=== PATIENT | male | born 1975 | race Caucasian/White ===

== ENCOUNTER 2019-09-30 06:02 | Inpatient (IN) | payer BC, OTHER ==
[~2019-09-30] VITALS: Ht 177.8 cm; Wt 120.2 kg
[~2019-09-30 06:02] MED LIST: IBUP-1222 PO; OXYC1TAB7 PO; POLY454P4 PO
[2019-09-30] MEDS ORDERED: NITROGLYCERIN SINGLE TAB 0.4 MG SL ONE (06:24)
[2019-09-30] MEDS ORDERED: ASPIRIN 81 MG TABLET CHEW ONE (06:24)
[2019-09-30] MEDS: NITROGLYCERIN SINGLE TAB 0.4 MG SL PRN ×3 (06:26→06:43)
[2019-09-30] MEDS ORDERED: SODIUM CHLORIDE FLUSH 10ML SYR IVF ONE (06:30)
[2019-09-30] MEDS ORDERED: ASPIRIN 81 MG TABLET CHEW PO ONE (06:30)
[2019-09-30 06:33] LABS: BASOPHILS # (AUTO) 0.06 x10^3/uL (0-0.1); BASOPHILS % (AUTO) 1 % (0-1); EOSINOPHILS # (AUTO) 0.54 x10^3/uL (0-0.4); EOSINOPHILS % (AUTO) 6 % (1-7); LYMPHOCYTES # (AUTO) 2.51 x10^3/uL (1-3.4); LYMPHOCYTES % (AUTO) 28 % (22-44); MD NO; MEAN CORPUSCULAR HGB CONC 33.2 g/dL (33.2-36.2); MEAN CORPUSCULAR VOLUME 93.3 fL (81-97); MEAN PLATELET VOLUME 7.6 fL (7.4-10.4); MONOCYTES # (AUTO) 0.72 x10^3/uL (0.2-0.8); MONOCYTES % (AUTO) 8 % (2-9); NEUTROPHILS # (AUTO) 5.02 x10^3/uL (1.8-6.8); NEUTROPHILS % (AUTO) 57 % (42-75); PLATELET COUNT 321 x10^3/uL (130-400); RED BLOOD COUNT 5.22 x10^6/uL (4.38-5.82); RED CELL DISTRIBUTION WIDTH 14.1 % (9.4-14.8)
--- NOTE | 2019-09-30 06:36 | NUR ---
THIS PT CAME TO THE ER AFTER WAKING UP AT 0500, HIS NORMAL TIME, WITH LEFT SIDED CHEST PRESSURE. PT STATES HIS LEFT ARM IS ALSO TINGLING. HX OF HTN. PT STATES HE JUST WENT BACK TO WORK THIS WEEK, HE HAS BEEN FEELING ANXIOUS ABOUT THAT. PT STATES SOME RELIEF FROM PRESSURE WITH NITRO. EKG DONE IN TRIAGE AND REPEAT EKG DONE IN ROOM. ERP TO BEDSIDE. PT CONNECTED TO CARDIAC, BP AND O2 MONITORS. WILL CONTINUE TO MONITOR.
[2019-09-30 06:51] LABS: ALBUMIN 4.1 g/dL (3.4-5.0); ANION GAP 4 mmol/L (5-15); CALCIUM 8.6 mg/dL (8.5-10.1); CHLORIDE 107 mmol/L (98-107); CREATININE 1.08 mg/dL (0.7-1.3)
[2019-09-30 06:54] LABS: TROPONIN I < 0.015 ng/mL (0.000-0.045)
--- NOTE | 2019-09-30 06:58 | NUR ---
REPORT RECEIVED FROM SIDNEY BAXTER.
--- NOTE | 2019-09-30 07:18 | NUR ---
edmd at bedside to explain all results at this time.
[2019-09-30] MEDS ORDERED: LOSA100T14 PO (07:58)
[2019-09-30] MEDS ORDERED: CLON0.1T22 PO (07:59)
--- NOTE | 2019-09-30 08:00 | NUR ---
URINAL GIVEN PER REQUEST.
--- NOTE | 2019-09-30 08:22 | NUR ---
REPORT GIVEN TO VERONICA BAXTER. ALL QUESTIONS ANSWERED.
[2019-09-30] MEDS ORDERED: SODIUM CHLORIDE FLUSH 10ML SYR IVF PRN (08:30)
[2019-09-30 08:45] VITALS: BP 155/100
[2019-09-30] MEDS ORDERED: MELATONIN 5 MG TABLET PO PRN (11:00)
[2019-09-30] MEDS ORDERED: POLYETHYLENE GLYCOL 17 GM PACKET PO PRN (11:00)
[2019-09-30] MEDS ORDERED: NITROGLYCERIN 0.4 MG BOTTLE (25 TABS) SL PRN (11:00)
[2019-09-30] MEDS ORDERED: hydrALAzine 20 MG/ML, 1ML IVPush PRN (11:00)
[2019-09-30] MEDS ORDERED: BISACODYL 10 MG SUPP PR PRN (11:00)
[2019-09-30] MEDS ORDERED: POTASSIUM CHLORIDE 20 MEQ TAB.ER.PRT PO ONE (11:00)
[2019-09-30] MEDS ORDERED: ONDANSETRON 2MG/ML, 2ML IVPush PRN (11:00)
[2019-09-30] MEDS ORDERED: LIDODERM 5% PATCH TD PRN (11:00)
[2019-09-30] MEDS ORDERED: NICOTINE 14MG/24 HR PATCH.TD24 TD SCH (11:30)
[2019-09-30] MEDS ORDERED: LIDODERM REMOVE PATCH NOTE XX PRN (11:30)
[2019-09-30] MEDS ORDERED: ENOXAPARIN 40 MG/0.4 ML SQ SCH (11:30)
[2019-09-30 11:31] LABS: FREE T4 (FREE THYROXINE) 1.06 ng/dL (0.76-1.46)
[2019-09-30] MEDS: LOSARTAN 100 MG TAB PO SCH (11:48)
[2019-09-30 12:27] LABS: BASOPHILS # (AUTO) 0.03 x10^3/uL (0-0.1); BASOPHILS % (AUTO) 0 % (0-1); EOSINOPHILS % (AUTO) 4 % (1-7); LYMPHOCYTES % (AUTO) 25 % (22-44); MD NO; MEAN CORPUSCULAR HEMOGLOBIN 31.2 pg (27.5-34.5); MEAN CORPUSCULAR HGB CONC 33.6 g/dL (33.2-36.2); MEAN CORPUSCULAR VOLUME 92.9 fL (81-97); MEAN PLATELET VOLUME 7.5 fL (7.4-10.4); MONOCYTES # (AUTO) 0.43 x10^3/uL (0.2-0.8); MONOCYTES % (AUTO) 5 % (2-9); NEUTROPHILS # (AUTO) 5.55 x10^3/uL (1.8-6.8); NEUTROPHILS % (AUTO) 66 % (42-75); PLATELET COUNT 280 x10^3/uL (130-400); RED BLOOD COUNT 4.87 x10^6/uL (4.38-5.82); RED CELL DISTRIBUTION WIDTH 13.8 % (9.4-14.8)
[2019-09-30 12:28] LABS: HCT (SEDRATE) 45.4 % (39.2-51.8)
[2019-09-30 13:02] VITALS: BP 149/92
[2019-09-30 15:05] VITALS: BP 154/101
[2019-09-30] MEDS: ACETAMINOPHEN 325 MG TABLET PO PRN (15:53)
[2019-09-30 19:08] VITALS: BP 168/88
[2019-09-30 19:59] VITALS: BP 155/100
[2019-10-01] VITALS (9 sets, daily range): BP systolic 130–168; BP diastolic 71–124
[2019-10-01 05:07] LABS: ALBUMIN 3.8 g/dL (3.4-5.0); ANION GAP 6 mmol/L (5-15); CALCIUM 8.9 mg/dL (8.5-10.1); CHLORIDE 109 mmol/L (98-107)
[2019-10-01 05:11] LABS: ALANINE AMINOTRANSFERASE 34 U/L (12-78); ALKALINE PHOSPHATASE 71 U/L (45-117); BILIRUBIN,TOTAL 0.7 mg/dL (0.2-1.0); CHOL/HDL RATIO 3.6; CHOLESTEROL, TOTAL 177 mg/dL (140-239); CREATININE 0.77 mg/dL (0.7-1.3); HDL CHOL % 28 % (26-37); HDL CHOLESTEROL (DIRECT) 49 mg/dL (40-60); LDL CHOLESTEROL,CALCULATED 87 mg/dL (54-169); LDL/HDL RATIO 1.8 (0.5-3.0); TOTAL PROTEIN 7.2 g/dL (6.4-8.2); TRIGLYCERIDES 204 mg/dL (50-200); VLDL CHOLESTEROL 41 mg/dL (0-25)
[2019-10-01] MEDS: ASPIRIN 325 MG TABLET EC PO SCH (06:22)
[2019-10-01] MEDS: LOSARTAN 100 MG TAB PO SCH (08:27)
[2019-10-01] MEDS: PANTOPRAZOLE 40MG TABLET PO SCH (08:27)
[2019-10-01] MEDS ORDERED: HEPARIN 5,000 UNITS/ML, 1ML IV ONE (08:30)
[2019-10-01] MEDS ORDERED: HEPARIN 25,000 UNITS/250ML PMX 250 ML IV PRN (08:30)
[2019-10-01] MEDS ORDERED: HEPARIN 5,000 UNITS/ML, 1ML IV PRN (08:30)
[2019-10-01] MEDS ORDERED: METOPROLOL SUCCINATE 25 MG TAB.ER.24H PO SCH (10:00)
[2019-10-01] MEDS: METOPROLOL SUCCINATE 25 MG TAB.ER.24H PO SCH (10:52)
[2019-10-01] MEDS: SODIUM CHLORIDE 0.9% 1,000 ML IV SCH ×4 (10:52→22:42)
[2019-10-01] MEDS ORDERED: VERAPAMIL 2.5 MG/ML, 2ML ONE (13:45)
[2019-10-01] MEDS ORDERED: LIDOCAINE 2%, 20ML ONE (13:45)
[2019-10-01] MEDS ORDERED: MIDAZOLAM 1 MG/ML, 5ML ONE (13:45)
[2019-10-01] MEDS ORDERED: FENTANYL PF 100 MCG/2ML ONE (13:45)
[2019-10-01] MEDS ORDERED: HEPARIN 1,000 UNITS/ML, 10ML ONE (13:46)
[2019-10-01] MEDS: ACETAMINOPHEN 325 MG TABLET PO PRN (15:57)
[2019-10-01] MEDS ORDERED: ATORVASTATIN 40 MG TABLET PO SCH (21:00)
[2019-10-01] MEDS ORDERED: OXYcodone/APAP 5/325MG TABLET PO ONE (21:30)
[2019-10-02 00:50] VITALS: BP 151/73
[2019-10-02] MEDS: ACETAMINOPHEN 325 MG TABLET PO PRN (03:09)
[2019-10-02] MEDS: SODIUM CHLORIDE 0.9% 1,000 ML IV SCH ×4 (03:09→11:22)
[2019-10-02 05:12] LABS: BASOPHILS # (AUTO) 0.03 x10^3/uL (0-0.1); BASOPHILS % (AUTO) 0 % (0-1); EOSINOPHILS # (AUTO) 0.24 x10^3/uL (0-0.4); EOSINOPHILS % (AUTO) 3 % (1-7); LYMPHOCYTES # (AUTO) 2.02 x10^3/uL (1-3.4); LYMPHOCYTES % (AUTO) 22 % (22-44); MD NO; MEAN CORPUSCULAR HEMOGLOBIN 31.1 pg (27.5-34.5); MEAN CORPUSCULAR HGB CONC 33.6 g/dL (33.2-36.2); MEAN CORPUSCULAR VOLUME 92.7 fL (81-97); MEAN PLATELET VOLUME 7.7 fL (7.4-10.4); MONOCYTES # (AUTO) 0.64 x10^3/uL (0.2-0.8); MONOCYTES % (AUTO) 7 % (2-9); NEUTROPHILS # (AUTO) 6.22 x10^3/uL (1.8-6.8); NEUTROPHILS % (AUTO) 68 % (42-75); PLATELET COUNT 265 x10^3/uL (130-400); RED BLOOD COUNT 5.17 x10^6/uL (4.38-5.82); RED CELL DISTRIBUTION WIDTH 13.9 % (9.4-14.8)
[2019-10-02 05:24] LABS: CHLORIDE 109 mmol/L (98-107)
[2019-10-02 05:28] LABS: ANION GAP 7 mmol/L (5-15); CALCIUM 8.6 mg/dL (8.5-10.1); CREATININE 0.66 mg/dL (0.7-1.3)
[2019-10-02] MEDS: METOPROLOL SUCCINATE 25 MG TAB.ER.24H PO SCH (06:10)
[2019-10-02] MEDS: ASPIRIN 325 MG TABLET EC PO SCH (06:10)
[2019-10-02 07:58] VITALS: BP 162/92
[2019-10-02 09:00] VITALS: BP 166/89
[2019-10-02] MEDS: LOSARTAN 100 MG TAB PO SCH (09:10)
[2019-10-02] MEDS: PANTOPRAZOLE 40MG TABLET PO SCH (09:10)
[2019-10-02] MEDS ORDERED: POTASSIUM CHLORIDE 20 MEQ TAB.ER.PRT PO ONE (10:00)
[2019-10-02] MEDS ORDERED: HYDROCHLOROTHIAZIDE 25 MG TABLET PO SCH (10:00)
[2019-10-02 12:51] VITALS: BP 144/85
[2019-10-02] MEDS ORDERED: HYDR25TA6 PO (14:13)
[2019-10-02] MEDS ORDERED: ASPI-650 PO (14:13)
[2019-10-02] MEDS ORDERED: METO-93 PO (14:13)
[2019-10-02] MEDS ORDERED: ATOR40TA78 PO (14:13)
[2019-10-03] MEDS ORDERED: METOPROLOL SUCCINATE 50 MG TAB.ER.24H PO SCH (06:00)
== END 2019-10-02 15:51 | disposition home or self-care (01) | DRG 282 ==
LOC: ED 07:21 → EDIP 08:24 → INTOOBSV 08:24 → 5SO 08:52 → OBSVTOIN 10-01 14:58 → DCLOUNGE 10-02 15:30
PROVIDERS: ADMIT Family Medicine; ATTEND Hospitalist
PROC: 4A023N7 Measurement of Cardiac Sampling and Pressure, Left Heart, Percutaneous Approach (ICD-10-PCS; principal; 2019-10-01)
PROC: B211YZZ Fluoroscopy of Multiple Coronary Arteries using Other Contrast (ICD-10-PCS; 2019-10-01)
PROC: B215YZZ Fluoroscopy of Left Heart using Other Contrast (ICD-10-PCS; 2019-10-01)
DX: I21.4 Non-ST elevation (NSTEMI) myocardial infarction (principal); I10 Essential (primary) hypertension; F12.90 Cannabis use, unspecified, uncomplicated; E87.6 Hypokalemia; E78.5 Hyperlipidemia, unspecified; I25.119 Atherosclerotic heart disease of native coronary artery with unspecified angina pectoris; Z87.891 Personal history of nicotine dependence; Z90.49 Acquired absence of other specified parts of digestive tract
CPT/HCPCS: 36415; 93458; 96372; 99285; J3490; 71045; 80048; 80053; 80061; 82040; 83036; 83880; 84439; 84443; 84484; 85025; 85520; 85651; 93005; 93306; 99156; 99157; C1769; C1894; G0378; J1644; J1650; J2250; J3010; J0360; J7030; Q9967

== ENCOUNTER 2019-10-03 22:28 | Emergency (ER) | payer OTHER ==
[~2019-10-03] VITALS: Ht 177.8 cm; Wt 120.8 kg
[~2019-10-03 22:28] MED LIST changes: +ASPI-650 PO; +ATOR40TA78 PO; +CLON0.1T22 PO; +HYDR25TA6 PO; +LOSA100T14 PO; +METO-93 PO
--- NOTE | 2019-10-03 22:52 | NUR ---
PT. TO ROOM FROM LOBBY.
[2019-10-03] MEDS ORDERED: NITROGLYCERIN SINGLE TAB 0.4 MG SL PRN (23:00)
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
[2019-10-03] MEDS ORDERED: NITROGLYCERIN SINGLE TAB 0.4 MG SL ONE (23:31)
[2019-10-03 23:34] LABS: BASOPHILS # (AUTO) 0.03 x10^3/uL (0-0.1); BASOPHILS % (AUTO) 0 % (0-1); EOSINOPHILS # (AUTO) 0.21 x10^3/uL (0-0.4); EOSINOPHILS % (AUTO) 2 % (1-7); LYMPHOCYTES # (AUTO) 1.89 x10^3/uL (1-3.4); LYMPHOCYTES % (AUTO) 15 % (22-44); MD NO; MEAN CORPUSCULAR HEMOGLOBIN 30.9 pg (27.5-34.5); MEAN CORPUSCULAR HGB CONC 33.1 g/dL (33.2-36.2); MEAN CORPUSCULAR VOLUME 93.1 fL (81-97); MEAN PLATELET VOLUME 7.6 fL (7.4-10.4); MONOCYTES # (AUTO) 0.92 x10^3/uL (0.2-0.8); MONOCYTES % (AUTO) 8 % (2-9); NEUTROPHILS # (AUTO) 9.29 x10^3/uL (1.8-6.8); NEUTROPHILS % (AUTO) 75 % (42-75); PLATELET COUNT 322 x10^3/uL (130-400); RED BLOOD COUNT 5.23 x10^6/uL (4.38-5.82); RED CELL DISTRIBUTION WIDTH 14.1 % (9.4-14.8)
[2019-10-03 23:36] LABS: ALBUMIN 4.1 g/dL (3.4-5.0); ANION GAP 9 mmol/L (5-15); CALCIUM 8.9 mg/dL (8.5-10.1); CHLORIDE 106 mmol/L (98-107)
[2019-10-03 23:43] LABS: CREATININE 1.19 mg/dL (0.7-1.3)
[2019-10-03 23:44] LABS: TROPONIN I 0.334 ng/mL (0.000-0.045)
--- NOTE | 2019-10-03 23:46 | NUR ---
PATIENT GIVEN NITRO PER EMAR. VITALS TAKEN BEFORE AND AFTER ADMIN. PATIENT STATES 0/10 PAIN AT THIS TIME, WITH LESSING NUMBNESS IN HANDS.
--- NOTE | 2019-10-04 00:10 | NUR ---
ERP AT BEDSIDE, DISCUSSED PLAN OF CARE. PATIENT STATES WANTED REPEAT TROPONINS IN AN HOUR AND RE-EVALUATE ADMISSION. ERP AWARE AND AGREEABLE.
[2019-10-04 01:33] LABS: TROPONIN I 0.316 ng/mL (0.000-0.045)
[2019-10-04] MEDS ORDERED: ASPIRIN 325 MG TABLET EC ONE (01:58)
[2019-10-04] MEDS ORDERED: ASPIRIN 325 MG TABLET EC PO ONE (02:00)
[2019-10-04 02:01] VITALS: BP 118/76
== END 2019-10-04 02:03 | disposition home or self-care (01) ==
LOC: ED 23:36
DX: R07.89 Other chest pain (principal); R20.2 Paresthesia of skin; R94.31 Abnormal electrocardiogram [ECG] [EKG]; I25.10 Atherosclerotic heart disease of native coronary artery without angina pectoris; E78.00 Pure hypercholesterolemia, unspecified; I10 Essential (primary) hypertension; Z98.61 Coronary angioplasty status; Z87.891 Personal history of nicotine dependence
CPT/HCPCS: 36415; 71045; 80048; 82040; 84484; 85025; 93005; 99285